=== PATIENT | female | born 2000 | race Asian ===

== ENCOUNTER 2020-03-07 11:31 | Emergency (ER) | payer OTHER ==
[~2020-03-07] VITALS: Ht 160 cm; Wt 72.7 kg
[2020-03-07 11:32] VITALS: BP 127/78
[2020-03-07] MEDS ORDERED: ISON100L PO (11:35)
[2020-03-07] MEDS ORDERED: PYRI25TA4 PO (11:35)
== END 2020-03-07 12:07 | disposition home or self-care (01) ==
LOC: EMS 11:34
DX: R76.11 Nonspecific reaction to tuberculin skin test without active tuberculosis (principal); Z53.21 Procedure and treatment not carried out due to patient leaving prior to being seen by health care provider
CPT/HCPCS: Z7502